=== PATIENT | female | born 1985 | race Caucasian/White ===

== ENCOUNTER → 2022-03-07 02:15 | Outpatient (CLI) | payer MEDICAID, SELFPAY ==
--- NOTE | 2022-03-07 | DI.MRI_ITS ---
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 MS TECHNIQUE: Multiplanar multisequence MRI was performed. COMPARISON: No exams were available for comparison FINDINGS: MR examination cervical spine was performed according to the usual protocol. Posterior fossa structur es appear intact. No bony signal abnormality seen. No disc herniation identified in the cervical region. The bony spinal canal and neural foramina appea r intact. Spinal cord is of normal diameter and shows normal signal throughout. IMPRESSION: No focal abnormality seen. DATA REPOSITORY:
--- NOTE | 2022-03-07 13:40 | DI.MRI_ITS ---
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 TECHNIQUE: Multiplanar multisequence MRI was performed. COMPARISON: No exams were available for comparison FINDINGS: MR examination of thoracic spine was performed according to the usual protocol. No significant bony signal abnormality seen in the region surveyed. No gross disc herniation. Spinal canal and neural foramina appear well maintained. Spinal cord is of normal signal throughout and shows normal diamete r period IMPRESSION: Normal thoracic spine MRI. DATA REPOSITORY:
== END ==
PROVIDERS: PCP Nurse Practitioner Acute Care; Visit Provider Nurse Practitioner Acute Care
DX: G95.89 Other specified diseases of spinal cord (principal)
CPT/HCPCS: 72141; 72146

== ENCOUNTER → 2022-03-07 02:16 | Outpatient (CLI) | payer MEDICAID, SELFPAY ==
--- NOTE | 2022-03-07 07:45 | DI.MRI_ITS ---
Exam(s) MR BRAIN WO EXAM: MR BRAIN WO CLINICAL HISTORY: ?MS,H/O ABNL MRI, R93.89, LESION LUMBAR SPINE TECHNIQUE: Multiplanar multisequence MRI of the brain was performed. COMPARISON: MR MRI [facility] W/O CNRST from 10/28/2021 FINDINGS: The ventricular system is normal in appearance. No signal abnormality identified in the brain. The orbital and temporal bone structures appear intact as does the pituitary. Diffusion weighted imaging shows no evidence of infarction. Susceptibility weighted imaging shows no evidence of intracranial hemorrhage. There is normal flow void in the [place] vasculature. IMPRESSION: Normal brain MRI. DATA REPOSITORY:
== END ==
PROVIDERS: PCP Nurse Practitioner Acute Care; Visit Provider Psychiatry & Neurology Neurology
DX: R93.89 Abnormal findings on diagnostic imaging of other specified body structures (principal); M54.16 Radiculopathy, lumbar region; R20.2 Paresthesia of skin; R20.0 Anesthesia of skin
CPT/HCPCS: 70551